=== PATIENT | male | born 1965 | race African-American/Black ===

== ENCOUNTER 2017-07-09 08:11 | Emergency (ER) | payer BC ==
[~2017-07-09] VITALS: Ht 180.3 cm; Wt 96.4 kg
[2017-07-09] MEDS ORDERED: TYLENOL WITH C1 EACH PO (10:08)
[2017-07-09 10:49] VITALS: BP 158/82
== END 2017-07-09 10:52 | disposition home or self-care (01) ==
LOC: EME 08:11
DX: S30.0XXA Contusion of lower back and pelvis, initial encounter (principal); M25.551 Pain in right hip; R51 Headache; W00.0XXA Fall on same level due to ice and snow, initial encounter
CPT/HCPCS: 70450; 72100; 73502; 99281; 99284